=== PATIENT | female | born 1935 | race Caucasian/White ===

== ENCOUNTER 2016-10-28 11:36 | Inpatient (IN) | payer MEDICARE, BC ==
--- NOTE | ~2016-10-28 | CR72 ---
[facility] A Service of [facility] & [facility] RADIOLOGY TEXT RESULTS PATIENT: NORMA CRISOSTOMO LOCATION: [address]-16 : 34 UNIT #: [id number] AGE: [address]: Randi Gonzales MD SEX: F ORDER DR: [id number] [facility] [address] [place], [place] [address] [id number] I MR#: [id number] Acc #: [id number] NAME: NORMA CRISOSTOMO. : 1935 SEX: F STUDY DATE/TIME: 10/30/2016 04:01 UNIT: [facility] ROOM: [facility] STUDY DESCRIPTION: CR Chest Single View Portable Attending Physician: Randi Gonzales M.D. Ordering Physician: Aleksander Serrato M.D. Primary Care Physician: Nestor Hernandez M.D. MEDICAL IMAGING REPORT This report is preliminary unless electronic signature is present EXAM Portable chest, 10/30 at 04:01 INDICATION Respiratory failure status post resuscitated arrest. FINDINGS AP portable chest is compared with 10/29/2016. ET tube and right chest tube remain in place. No pneumothorax is seen. There is infiltrate or atelectasis in the bases, unchanged. Small left pleural effusion is unchanged. No visible pneumothorax. Dictated by... Mack Grover Jr., M.D. THIS IS AN ELECTRONICALLY VERIFIED REPORT Mack Grover Jr., M.D. at 10/30/2016 9:33 PM KATEY/christina TD: 10/30/2016 17:01 JOB #: [id number] MEDICAL IMAGING REPORT COPY
--- NOTE | ~2016-10-28 | CO ---
Unit #: [id number] #: [id number] Patient: NORMA CRISOSTOMO [id number] [facility] [address] [place], [place] [address] [id number] I MR#: [id number] NAME: NORMA CRISOSTOMO. ROOM: [facility] Age: 81 Sex: F Admission Date: 10/28/2016 : 1935 Attending Physician: Randi Gonzales M.D. Primary Care Physician: Nestor Hernandez M.D. Consultation Date: 10/29/2016 CONSULTATION REPORT PRIMARY CARE PHYSICIAN Nestor Hernandez M.D. REASON FOR CONSULTATION Evaluation of her resuscitated arrest. PATIENT IDENTIFICATION This is an 81-year-old, apparently right-handed white female, who was evaluated in room ICU, bed 16 at [facility]. SOURCE OF INFORMATION The medical records. PROBLEM LIST 1. History of right breast cancer, which was invasive ductal carcinoma with 6/6 lymph nodes and possible metastasis to different organs and systems maybe brain also liver and possible lungs. 2. She was discharged to rehab. 3. Dysphagia with esophageal dysmotility and history of GERD. 4. 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 5. COPD, on home oxygen. 6. Chronic pain with previous pain pump placement and removal. 7. Glaucoma. 8. Hyperlipidemia. 9. Hypertension. 10. Gout. 11. Neuropathy. 12. Mastectomy. 13. Cardiac cath. 14. . 15. Hysterectomy. 16. Cholecystectomy. 17. Neck surgery and back surgery. HISTORY OF PRESENT ILLNESS This is an 81-year-old female with significant past medical history, who was brought to the ER via EMS for evaluation of resuscitated arrest. The patient is undergoing rehab and then she was actually being visited by her daughter when suddenly collapsed around 9:00 at the rehab facility. CPR was initiated in the assisted and continued for about 12 minutes unless EMS arrived. The EMS then took over the ACLS and achieved her return of spontaneous circulation after about further 12 minutes. She received 3 doses of epinephrine. I do not think she was shocked. She was Unit #: [id number] #: [id number] Patient: NORMA CRISOSTOMO intubated prior to arrival. She has some mild sedation. She is having some posturing type movements and some myoclonic type activity, but she has not done anything purposeful. Her blood pressure was low. She did not want to be resuscitated or intubated, but now with her decision already made and the plan is to observe her and see how things go. No obvious generalized convulsive type seizures have been found. PAST MEDICAL HISTORY As above. PAST SURGICAL HISTORY As discussed above. ALLERGIES Statin and niacin. HOME MEDICATIONS As per documents available is Tylenol, allopurinol, anastrozole, Cepacol, chlorthalidone, enoxaparin, folic acid, ipratropium/albuterol, Istalol, Lamictal, melatonin, Mucinex, [place], pantoprazole, Robitussin. FAMILY HISTORY No seizure or neurologic issue. SOCIAL HISTORY The patient apparently lives in rehab. She is a former smoker. No drug or alcohol use. REVIEW OF SYSTEMS Could not be obtained because of her present condition. PHYSICAL EXAMINATION VITAL SIGNS: Temperature 98.4, pulse is 104, respirations 26, blood pressure 124/48, O2 sats 99% to 100%. NEUROLOGIC: The patient is comatose, [place] Coma Scale maybe 5 to 6 because she has this mixed kind of withdrawal versus posturing in all extremities. Obviously not following commands and not doing anything purposeful. Cranial nerve examination, her pupils sluggishly reactive. Some movements inferiorly and to the left side, but corneals present. Respond to visual threats, I did not see. Pupils sluggishly reactive. Eye movements so far are conjugate. I do not see any facial asymmetry. Hearing is questionable. Muscle mastication could not be checked. Tongue was midline. I could not visualize her oropharynx or uvula. Head turning was minimally seen. Motor examination, some mixture of posturing with withdrawals in both upper and lower extremities. Sensory examination respond to pain. I could not get any reflexes. Toes are mute because of toes are upgoing Unit #: [id number] #: [id number] Patient: NORMA CRISOSTOMO bilaterally. Gait and coordination could not be evaluated. DIAGNOSTIC STUDIES LABORATORY RESULTS: Labs reviewed especially her ABGs and please refer to the records. Her BUN is 40, creatinine is 2.2, random glucose was 185 to 335. CK was 188 to 239. Troponin was 0.56 and 0.86. Lactic acid was 8.6 and is 4.7. White count 30.2, H and H of 8.4 and 27.0, platelet count was 115. Urinalysis really did not show anything impressive. IMAGING STUDIES: CT head showed poorly defined hyperdense in the right parietal lobe near the vertex and there may be some other areas also. IMPRESSION 1. Resuscitated arrest. 2. The issue is what is the primary etiology and problem. Did she have seizure, these mets and there are multiple areas of mets with some pulmonary areas of questionable and liver areas and definitely with breast cancer lymph node. There is right pleural effusion and persistent dense consolidation within the right upper lobe. She has right-sided chest tube placed, hepatic metastasis, bilateral multiple anterior rib fractures. 3. Could this be hypoxic and anoxic encephalopathy, I will await for her to see how she does over the next 48 hours. I do want to start her on antiepileptics because if these are brain mets, then these could be seizures also. 4. Poor prognostic picture considering her age. 5. Multiple areas involved and breast cancer with metastases even to the brain then that whole picture is a poor prognostic picture even if she survives this present event and that is my point to the family considering that she never wanted to be intubated. We will see how things go. I talked to her son and I will follow up and see how things turntable man. I am concerned about poor prognostic picture as discussed and further treatment will be based on any findings and I will keep you informed. Dictated by... Diana Kline/doris TD: 10/31/2016 05:46 JOB #: [id number] CONSULTATION REPORT X Elvia Martinez MD X CONSULTATION REPORT
--- NOTE | ~2016-10-28 | CT16 ---
[facility] A Service of [facility] & [facility] RADIOLOGY TEXT RESULTS PATIENT: NORMA CRISOSTOMO LOCATION: [facility] CICCU3-16 : 34 UNIT #: [id number] AGE: [address]: Khalida Cannon MD SEX: F ORDER DR: [id number] [facility] [address] [place], [place] [address] [id number] I MR#: [id number] Acc #: [id number] NAME: NORMA CRISOSTOMO. : 1935 SEX: F STUDY DATE/TIME: 10/28/2016 12:44 UNIT: [facility] ROOM: [id number] STUDY DESCRIPTION: CT Angio Chest for PE Attending Physician: Khalida Cannon M.D. Ordering Physician: Ashley Fragoso M.D. Primary Care Physician: Nestor Hernandez M.D. MEDICAL IMAGING REPORT This report is preliminary unless electronic signature is present EXAM CT angiogram of the chest INDICATION Pneumothorax. This was diagnosed on a chest radiograph. Following a resuscitated arrest today. Patient was transferred from a prison. TECHNIQUE Axial CT images were obtained from the thoracic inlet through the dome of the diaphragm following the administration of intravenous contrast. Following this 3D reformatted images were obtained. This CT exam was performed with one or more of the following radiation dose reduction techniques: automatic exposure control, adjustment of mA and/or kV according to patient size, and iterative reconstruction. FINDINGS No acute pulmonary thromboembolus is seen. Patient is noted have aneurysmal dilatation of the ascending thoracic aorta measuring up to 4.1 cm. The descending thoracic aorta measures within normal size limits. Presence or absence of dissection really cannot be assessed on this examination, although patient does appear to have significant atherosclerotic plaque. The main pulmonary artery is dilated at 3.2 cm which can be seen in the setting of pulmonary arterial hypertension. There is no pericardial effusion. Patient has a trace right pleural effusion. Right-sided pneumothorax is noted. I would grade this at around 25%. The thyroid gland appears unremarkable. Patient has an endotracheal tube which terminates above the level of the effie. Mediastinal lymph nodes do not appear pathologically enlarged. Esophagus appears unremarkable. There are coronary artery calcifications. Background emphysematous changes are noted. The main stem bronchi appear STS. [facility] A Service of [facility] & [facility] RADIOLOGY TEXT RESULTS PATIENT: NORMA CRISOSTOMO LOCATION: [facility] CICCU3-16 : 34 UNIT #: [id number] AGE: [address]: Khalida Cannon MD SEX: F ORDER DR: narrowed bilaterally of uncertain clinical significance. Dense consolidation is seen within the right upper lobe and there is bibasilar atelectasis. Patient has subcutaneous gas seen within the right anterior chest wall. There is reflux of contrast material into the hepatic veins which can be seen in the setting of right-sided heart failure. Multiple hepatic masses are present, characteristic of metastatic disease. These were also present on a CT of the abdomen from 10/28/2016. Pancreas is atrophic. Extensive fecal burden is identified within the colon which could reflect some constipation. Gallbladder is surgically absent. Patient is status post right mastectomy. I do not see any aggressive osseous abnormalities. Patient has bilateral anterior rib fractures likely related to recent chest compressions. These include the right 2nd through 6th ribs and the left 2nd and 5th ribs. The patient does have some soft tissue stranding seen overlying the right lateral chest wall likely related to recent surgery. IMPRESSION 1. No acute pulmonary thromboembolus seen. 2. Right-sided pneumothorax. I would grade this at about 25%. 3. Dense consolidation seen within the right upper lobe. I am uncertain of the clinical significance. Pneumonia would be a consideration as would pulmonary contusion. 4. Aneurysmal dilatation of the ascending thoracic aorta measuring up to 4.1 cm. 5. Endotracheal tube terminates above the level of the effie. 6. Since prior CT, patient has undergone a right mastectomy. 7. Hepatic metastases. 8. Extensive fecal burden seen throughout the colon which may reflect some constipation. 9. Bilateral multiple anterior rib fractures. Dictated by... Leidy Engel M.D. THIS IS AN ELECTRONICALLY VERIFIED REPORT Leidy Engel M.D. at 10/28/2016 5:25 PM AFF/aa TD: 10/28/2016 16:13 JOB #: [id number] MEDICAL IMAGING REPORT COPY
--- NOTE | ~2016-10-28 | CR72 ---
[facility] A Service of [facility] & [facility] RADIOLOGY TEXT RESULTS PATIENT: NORMA CRISOSTOMO LOCATION: [facility] [address]82-51 : 34 UNIT #: [id number] AGE: [address]: Khalida Cannon MD SEX: F ORDER DR: [id number] [facility] [address] [place], [place] [address] [id number] MR#: [id number] Acc #: [id number] NAME: NORMA CRISOSTOMO. : 1935 SEX: F STUDY DATE/TIME: 10/28/2016 12:00 UNIT: [facility] ROOM: STUDY DESCRIPTION: CR Chest Single View Portable Attending Physician: Ashley Fragoso M.D. Ordering Physician: Ashley Fragoso M.D. Primary Care Physician: Nestor Hernandez M.D. MEDICAL IMAGING REPORT This report is preliminary unless electronic signature is present EXAM Portable chest 10/28/2016 COMPARISON STUDIES Comparison examination same date. HISTORY Reevaluation of pneumothorax. An AP view is obtained. FINDINGS The patient remains intubated with ET tube above the effie. Right pneumothorax is again identified. It has increased slightly in size. Chronic pulmonary parenchymal scarring seen in both lungs with postop changes of right thoracotomy. ET tube is in good position. CONCLUSION Slight increase in the predominantly basilar appearing right pneumothorax. Dictated by... Srikanth Damian M.D. THIS IS AN ELECTRONICALLY VERIFIED REPORT Srikanth Daiman M.D. at 10/28/2016 4:45 PM ADAM/edie TD: 10/28/2016 15:14 JOB #: [id number] MEDICAL IMAGING REPORT COPY
--- NOTE | ~2016-10-28 | EKG ---
PATIENT: NORMA CRISOSTOMO UNIT #: [id number] Ventricular Rate: 74 BPM Atrial Rate: 74 BPM QRS Duration: 86 ms Q-T Interval: 372 ms QTC Calculation(Bezet): 412 ms Calculated R Corning: 75 degrees Calculated T Corning: 50 degrees Diagnosis Line: Normal sinus rhythm Diagnosis Line: Nonspecific ST elevation Diagnosis Line: Borderline ECG Diagnosis Line: When compared with ECG of 29-SEP-2016 21:55, Diagnosis Line: Minimal criteria for Anterior infarct are no Diagnosis Line: longer Present Diagnosis Line: Criteria for Inferior infarct are no longer Diagnosis Line: Present Diagnosis Line: Confirmed by KATIA ADAMS MD ([id number]) on 10/29/2016 Diagnosis Line: 5:58:19 PM INTERPRETING MD: ANGIE SEGURA
--- NOTE | ~2016-10-28 | CT71 ---
[facility] A Service of [facility] RADIOLOGY TEXT RESULTS PATIENT: NORMA CRISOSTOMO LOCATION: [facility] CICCU3-16 : 34 UNIT #: [id number] AGE: [address]: Randi Gonzales MD SEX: F ORDER DR: [id number] [facility] [address] [place], [place] [address] [id number] I MR#: [id number] Acc #: [id number] NAME: NORMA CRISOSTOMO. : 1935 SEX: F STUDY DATE/TIME: 10/28/2016 12:36 UNIT: [facility] ROOM: [id number] STUDY DESCRIPTION: CT Head Wo Contrast Attending Physician: Khalida Cannon M.D. Ordering Physician: Ashley Fragoso M.D. Primary Care Physician: Nestor Hernandez M.D. MEDICAL IMAGING REPORT This report is preliminary unless electronic signature is present EXAM Noncontrast CT head. DATE 10/28/2016 at 1236 HISTORY Resuscitated from arrest at custodial today. Hypertension. Previous stroke. COMPARISON Noncontrast CT head, 12/24/2009. TECHNIQUE This CT exam was performed with one or more of the following radiation dose reduction techniques: automatic exposure control, adjustment of mA and/or kV according to patient size, and iterative reconstruction. FINDINGS Hypodensities demonstrated within the right parietal lobe near the vertex, measuring 2.2 x 1.2 cm. It is a new finding since the 12/24/2009 examination and may represent an area of evolving infarct. Some of this hypodensity does extend to the cortical margin. No significant mass effect or midline shift. No acute intracranial hemorrhage. Questionable microvascular disease changes within the right posterior parietal lobe medially. [id number]-md-fpvnbctn parenchymal atrophy, particularly in the bifrontal regions. Ventricular configuration is within normal limits. Dense ethmoid sinus mucosal thickening. Mastoid air cells are clear. Calvaria is within normal limits. IMPRESSION 1. Poorly defined hypodensity in the right parietal lobe near the [facility] RADIOLOGY TEXT RESULTS PATIENT: NORMA CRISOSTOMO [facility] CICCU3-16 : 34 UNIT #: [id number] AGE: [address]: Randi Gonzales MD SEX: F ORDER DR: measuring at least 2.2 x 1.2 cm. It is nonspecific and could represent an area of evolving infarct. Questionable microvascular disease change also within the posteromedial right parietal lobe. If the patient has acute stroke-like symptoms, consider correlation to MRI brain stroke protocol (if the patient is an MRI candidate). These findings are new in comparison to the 12/24/[address] head. 2. Ethmoid sinus disease. 3. Mild atrophy. Dictated by... Gisele Salmeron M.D. THIS IS AN ELECTRONICALLY VERIFIED REPORT Gisele Salmeron M.D. at 10/30/2016 7:02 PM MIRZA/evita TD: 10/28/2016 16:21 JOB #: [id number] MEDICAL IMAGING REPORT COPY
--- NOTE | ~2016-10-28 | HP ---
Unit #: [id number] #: [id number] Patient: NORMA CRISOSTOMO [id number] [facility]. [place], [place] [address] [id number] MR#: [id number] NAME: NORMA CRISOSTOMO ROOM: Age: 81 Sex: F Admission Date: 10/28/2016 : 1935 Attending Physician: Ashley Fragoso M.D. Primary Care Physician: Nestor Hernandez M.D. HISTORY AND PHYSICAL CHIEF COMPLAINT Resuscitated arrest. HISTORY OF PRESENT ILLNESS The patient is an 81-year-old female with past medical history of multiple medical problems including breast cancer, COPD, chronic respiratory failure, hypertension, hyperlipidemia, Freedman's palsy, neuropathy, chronic pain who was brought to the emergency department via EMS for evaluation of the above. History is obtained from chart review and discussion with ER staff as well as discussion with multiple family members. Of note, the patient was hospitalized at [facility] September 29 through October 08, 2016, for right breast cancer. She underwent mastectomy during that admission. She was also found to have pneumonia. She was discharged to rehab on Levaquin. The patient was apparently eating breakfast with her daughter this morning when she suddenly collapsed. This was around 9 o'clock at the rehab facility. CPR was initiated at the care home and continued for about 12 minutes until EMS arrived. EMS then took over with ACLS and achieved a return of spontaneous circulation after about 12 minutes. The patient received three doses of epinephrine prior to arrival. She was intubated prior to arrival. Upon arrival in the emergency department, the patient's pulse is noted to be 80, blood pressure 82/34. She received 2 L of normal saline. She was started on a Levophed drip. CT of the head was done and showed a new density in the right parietal lobe concerning for possible evolving infarct. CT of the chest PE protocol showed no PE; however, she does have dense consolidation involving the right upper lobe. Liver metastasis is also noted. She was also found to have a right-sided pneumothorax. A femoral line was placed by the emergency room physician. Dr. Serrato has already placed a chest tube. She is being admitted to [facility] for evaluation and further treatment. Also of note, the patient received Zosyn for healthcare-associated pneumonia. PAST MEDICAL HISTORY 1. Admission to [facility] September 29 through October 08, 2016, for right breast cancer. 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 She underwent mastectomy during that admission. 2. She was also found to have pneumonia and discharged to rehab on Levaquin. 3. Dysphagia, status post multiple esophageal dilatations and history of esophageal dysmotility and GERD. Unit #: [id number] #: [id number] Patient: NORMA CRISOSTOMO 4. 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 5. COPD on home oxygen. 6. Chronic pain with previous pain pump placement and removal. 7. Glaucoma. 8. Hyperlipidemia. 9. Hypertension. 10. Gout. 11. Neuropathy. PAST SURGICAL HISTORY 1. Mastectomy. 2. Cardiac catheterization. 3. . 4. Hysterectomy. 5. Cholecystectomy. 6. Pain pump placement and removal. 7. Neck surgery. 8. Back surgery. SOCIAL HISTORY The patient is currently at rehab. She is a former smoker. There is no alcohol use. CODE STATUS Her code status is a full code. FAMILY HISTORY Negative for breast cancer. ALLERGIES Statins and Niacin. HOME MEDICATIONS Not listed. Home medications per the ER triage sheet include: 1. Tylenol. 2. Allopurinol. 3. Anastrozole. 4. Cepacol. 5. Chlorthalidone. 6. Enoxaparin. 7. Folic acid. 8. Ipratropium/albuterol. 9. Istalol. 10. Lamictal. 11. Melatonin. 12. Mucinex. 13. [place]. 14. Pantoprazole. 15. Robitussin. Home medications will need to be reviewed and verified. REVIEW OF SYSTEMS A complete review of systems was unobtainable from the patient secondary to altered mental status but negative except as indicated in the HPI, per the patient's family. Apparently, the patient had a persistent cough but no fever. She had no complaints this morning prior to collapse. Unit #: [id number] #: [id number] Patient: NORMA CRISOSTOMO DIAGNOSTIC STUDIES LABORATORY: Troponin is less than 0.05. Urinalysis essentially normal. Complete blood count notable for white blood cell count of 16.3, hemoglobin and hematocrit 8.3 and 27.2 respectively, platelets 97,000. Arterial blood gas shows pH of 7.174, pCO2 of 56.2, pO2 of 432 on assist control with a FIO2 of 100%. INR is 1.2. Lactic acid 8.6. Comprehensive metabolic panel notable for potassium of 5.3, bicarbonate is 20, glucose 335, BUN and creatinine 39 and 1.7 respectively. Calcium is 8.2 but corrects when albumin of 2.4 is accounted for. Total protein is 4.2. AST and ALT are 106 and 44 respectively. Magnesium is 1.9. IMAGING: Chest x-ray shows rib fractures. CT of the chest PE protocol shows no PE. There is dense consolidation involving the right upper lobe. Liver metastasis is noted. A right-sided pneumothorax, approximately 25%. CT of the head shows hypodensity involving the right parietal lobe concerning for evolving infarct. CARDIOVASCULAR: EKG shows accelerated junctional rhythm and a rate of 74 beats per minute. PHYSICAL EXAMINATION VITAL SIGNS: Temperature is not recorded. Pulse 80, respirations 20, blood pressure 82/31. GENERAL: The patient is a female who is currently intubated. HEENT: The head is atraumatic. Mucous membranes are dry. NECK: Supple. Trachea is midline. CARDIOVASCULAR: Regular rate and rhythm. LUNGS: Demonstrate scattered expiratory wheezes. She does have a right-sided chest tube in place. ABDOMEN: Soft with bowel sounds present in all four quadrants. EXTREMITIES: There is no pedal edema. NEUROLOGIC: The patient reportedly had a gag reflex. Pupils are equal and reactive. PSYCHIATRIC: Unable to assess. SKIN: Skin of examined area is warm and dry. ASSESSMENT The patient is an 81-year-old female with: 1. Resuscitated arrest with return of spontaneous circulation after about 24 minutes of cardiopulmonary resuscitation. The patient received three doses of epinephrine and never had a shockable rhythm. 2. Septic shock: The patient received 2 L of normal saline. She is currently on Levophed drip. 3. Healthcare-associated pneumonia. 4. Right-sided pneumothorax, status post chest tube placement. 5. Multiple rib fractures. 6. Parietal lesion concerning for evolving stroke. 7. Anemia. 8. Thrombocytopenia. 9. Hyperglycemia: I do not see that the patient has a history of diabetes. 10. Acute kidney injury. 11. Hyperkalemia. 12. Transaminitis. 13. History of breast cancer with metastatic involvement of lymph nodes Unit #: [id number] #: [id number] Patient: NORMA CRISOSTOMO and liver. 14. Chronic obstructive pulmonary disease. 15. Chronic respiratory failure. 16. Hyperlipidemia. 17. Freedman's palsy. 18. Neuropathy. 19. Chronic pain. 20. Former smoker. PLAN 1. Admit to intensive care unit. 2. NPO. 3. Normal saline at 125 mL an hour. 4. Consult Dr. Serrato regarding pneumothorax, intensive care unit admission, resuscitated arrest (he has already seen the patient and we have discussed the patient. She is not a candidate for hypothermia.) 5. Blood cultures x2. 6. Sputum culture and sensitivity. 7. Procalcitonin level. 8. Streptococcal and legionella urine antigen. 9. Vancomycin IV, tobramycin IV, Zosyn IV pending further workup. 10. DuoNeb q.4 hours. 11. Solu-Medrol 80 mg IV q.12 hours. 12. Hemoglobin A1c. 13. Low-dose sliding scale insulin with Accu-Cheks. 14. Serial cardiac enzymes. 15. Sepsis protocol with repeat lactic acid. 16. Repeat BMP and hemoglobin and hematocrit later this afternoon to followup anemia and hyperkalemia. 17. Consult Dr. Martinez regarding right parietal lobe lesion. 18. MRI of the brain without contrast for further evaluation of parietal lobe lesion. 19. Protonix for gastrointestinal prophylaxis. 20. Sequential compression devices for deep venous thrombosis prophylaxis. 21. Repeat labs in the morning. 22. Regarding code status, the patient is a full code. Forty five minutes critical care time spent in the care of this patient (2 o'clock to 2:45 p.m.). I discussed this patient with multiple family members including the patient's daughter. All their questions were answered. Dictated by Diana Mcfarland TD: 10/28/2016 14:58 JOB #: [id number] Unit #: [id number] #: [id number] Patient: NORMA CRISOSTOMO HISTORY AND PHYSICAL X Khalida Cannon MD X HISTORY AND PHYSICAL
--- NOTE | ~2016-10-28 | CR71 ---
[facility] A Service of [facility] RADIOLOGY TEXT RESULTS PATIENT: NORMA CRISOSTOMO LOCATION: [place] [address]16 : 34 UNIT #: [id number] AGE: [address]: Randi Gonzales MD SEX: F ORDER DR: [id number] [facility] [address] [place], [place] [address] [id number] I MR#: [id number] Acc #: [id number] NAME: NORMA CRISOSTOMO. : 1935 SEX: F STUDY DATE/TIME: 10/29/2016 05:04 UNIT: [facility] ROOM: [facility] STUDY DESCRIPTION: CR Chest Single View Attending Physician: Randi Gonzales M.D. Ordering Physician: Khalida Cannon M.D. Primary Care Physician: Nestor Hernandez M.D. MEDICAL IMAGING REPORT This report is preliminary unless electronic signature is present EXAM Chest x-ray, 10/29 at 05:04 INDICATION Respiratory failure. Chest tube. Pneumonia. FINDINGS AP portable chest is compared with 10/28/2016. ET tube has been pulled back somewhat and is now about 6.0 cm above the effie. Right side chest tube in place. Right pleural fluid is stable. Mild infiltrate or atelectasis in both bases is also stable. No pneumothorax. Dictated by... Mack Grover Jr., M.D. THIS IS AN ELECTRONICALLY VERIFIED REPORT Mack Grover Jr., M.D. at 10/29/2016 11:01 PM KATEY/christina TD: 10/29/2016 18:05 JOB #: [id number] MEDICAL IMAGING REPORT COPY
--- NOTE | ~2016-10-28 | OR ---
Unit #: [id number] #: [id number] Patient: NORMA CRISOSTOMO [id number] [place], [place] [address] [id number] Giana MR#: [id number] NAME: NORMA CRISOSTOMO ROOM: [facility] Date of Procedure: 10/28/2016 Admission Date: 10/28/2016 Surgeon: Juanjo Serrato M.D. : 1935 Attending Physician: Randi Gonzales M.D. Primary Care Physician: Nestor Hernandez M.D. PROCEDURE OPERATIVE NOTE PROCEDURE PERFORMED Thoracotomy/chest tube placement. INDICATION FOR PROCEDURE Iatrogenic right-sided pneumothorax due to CPR. PREOPERATIVE DIAGNOSIS Status post cardiac arrest. Informed consent was waived. DESCRIPTION OF PROCEDURE Patient's right chest was cleaned and prepped with chlorhexidine and povidone. Then, a small cut about 3 cm was obtained with a scalpel at the level of the fifth intercostal space. Then, with a Cielo clamp multiple dissections were obtained gently through her soft tissues to the level of the ribs. Then, I was able to puncture the intercostal space with my finger, and a gush of air was obtained. Then, a 20-Korean size chest tube was inserted between the ribs and sutured appropriately. Then, Vaseline, gauze, and a dressing were applied. The chest tube was connected to suction chambers and air bubbles were noted. A stat chest x-ray confirmed placement with no immediate complication. This procedure was done in a sterile fashion. Dictated by... Juanjo Serrato M.D. EA/castro TD: 11/01/2016 21:41 JOB #: [id number] PROCEDURE OPERATIVE NOTE X JUANJO NIETO MD PROCEDURE OPERATIVE NOTE
--- NOTE | ~2016-10-28 | DS ---
Unit #: [id number] #: [id number] Patient: NORMA CRISOSTOMO [id number] [facility]. [place], [place] [address] [id number] I MR#: [id number] NAME: NORMA CRISOSTOMO ROOM: [facility] Age: 81 Sex: F Admission Date: 10/28/2016 : 1935 Discharge Date: 10/30/2016 Attending Physician: Randi Gonzales M.D. Primary Care Physician: Nestor Hernandez M.D. DISCHARGE SUMMARY SUMMARY HOSPITAL COURSE 81-year-old female was admitted to [facility] with cardiac arrest. Patient was seen by cardiology and pulmonary in consultation. She was treated for septic shock, hypotension with vasopressors, healthcare-associated pneumonia. Had a right sided pneumothorax, status post chest tube placement with multiple rib fractures. There was also concern for evolving stroke. The patient also had anemia and thrombocytopenia. The patient's condition did not improve. Neurology also saw patient in consultation. Therefore, after multiple discussions with patient's family member, it was decided to terminally extubated patient. The patient peacefully on 10/30/2016. Dictated by... Diana Del Toro/darrell TD: 10/31/2016 13:11 JOB #: [id number] DISCHARGE SUMMARY X Randi Gonzales MD X DISCHARGE SUMMARY
--- NOTE | ~2016-10-28 | CR7 ---
[facility] A Service of [facility] & [facility] RADIOLOGY TEXT RESULTS PATIENT: NORMA CRISOSTOMO LOCATION: [address] : 34 UNIT #: [id number] AGE: [address]: Randi Gonzales MD SEX: F ORDER DR: [id number] [facility] [address] [place], [place] [address] [id number] I MR#: [id number] Acc #: [id number] NAME: NORMA CRISOSTOMO. : 1935 SEX: F STUDY DATE/TIME: 10/29/2016 05:04 UNIT: [facility] ROOM: [facility] STUDY DESCRIPTION: CR Abdomen Single AP View Attending Physician: Randi Gonzales M.D. Ordering Physician: Khalida Cannon M.D. Primary Care Physician: Nestor Hernandez M.D. MEDICAL IMAGING REPORT This report is preliminary unless electronic signature is present EXAM KUB, 10/29 at 05:04 INDICATION NG tube placement FINDINGS Supine view of the abdomen was obtained. Tip of an NG tube is noted in the body of the stomach. Cholecystectomy clips are present. Visualized bowel gas pattern is normal. Small caliber tubing overlies the left upper quadrant. Correlate clinically for etiology. Dictated by... Mack Grover Jr., M.D. THIS IS AN ELECTRONICALLY VERIFIED REPORT Mack Grover Jr., M.D. at 10/29/2016 11:01 PM KATEY/christina TD: 10/29/2016 18:04 JOB #: [id number] MEDICAL IMAGING REPORT COPY
--- NOTE | ~2016-10-28 | A ---
[facility] Nutrition Therapy DATE: 10/29/16 Patient: NORMA CRISOSTOMO Physician: ALFONSO Address: [address] Room/Bed: [address], Zip: [place] [address] Admit Date: 10/28/16 Date of : 34 Height: 5 Weight: 174 79 NUTRITIONAL ASSESSMENT: REASON: Seen due to NPO status in ICU, intubated Admitting Dx: 81 y/o female s/p resuscitated arrest from senior living PMH: GERD, COPD, HTN, HLD, breast cancer s/p recent mastectomy, dysphagia, esophageal dysmotility s/p multiple dilations, chronic respiratory failure, former smoker, Freedman's Palsy, neuropathy, chronic pain Anthropometrics: Ht: 60", Wt: 79 kg, BMI: 34 Labs: Glucose 185, POC 178, BUN 40, Creat 2.2, AST 89, ALT 42, A1C 6.2, GFR 22.7, lytes WNL Meds: Solu-Medrol, Levophed, Fentanyl, PPI, Novolog (low SSI), NSIV @ 125 ml/hr I/O & Bowel function: LBM unknown, NGT to LWS Skin Integrity: Chest tube site, closed surgical incision R breast (mastectomy site), scars noted, BLE edema 2+ Estimated Nutrition Needs: 1357-7453 kcals per day (15-20 kcals/kg) 68-91 g protein per day (1.5-2.0 g/kg IBW) Fluids consistent with kcal needs or per MD Assessment: Chart reviewed, events noted. See admitting dx and PMH as stated above. Patient had recent admission to this facility from 09/29-10/08/16 for breast cancer and had mastectomy, also found to have PNA during that admission. CT of chest this admission shows liver mets and right pnemothorax, CT of head showed concern of right evolving infarct. Patient is intubated in the ICU, NPO. Note elevated A1C and hyperglycemia but patient has no hx of diabetes. She is inappropriate for RD interview at this time, please see EN recs below, will follow hospital course. Dx: Inadequate protein energy intake r/t nutrition not yet initiated AEB NPO in ICU, intubated, need for EN. Intervention: EN recs as stated below Monitoring, Evaluation and Goals: 1. Nutrition support consistent with estimated needs. [facility] Nutrition Therapy DATE: 10/29/16 Patient: NORMA Ruaon ANDRESSA Physician: ALFONSO Address: [address] Room/Bed: [address] [place] [address], Zip: [place] [address] Admit Date: 10/28/16 Date of : 34 Height: 5 Weight: 174 79 2. Improvement in lab values (AST, ALT, GFR, BUN, Creatinine, glucose). Monitor: Per protocol, criteria to determine if above goals met Recommendations: 1. If the patient is to remain intubated > 48 hours start enteral feedings once medically appropriate with Glucerna 1.5 @ 20 ml and increase by 10 ml q 4 hours until goal rate of 45 ml/hr is reached, to provide 1620 kcals, 89 g protein and 821 ml water. Once at goal rate add free water flushes per MD, RD suggests 200 ml QID and hold liquid IVF. 2. If extubated advance to oral diet per VARNISH INSPECTOR only, RD suggests regular diet. Patient may need 60g carb restriction if hyperglycemia continues, although she has no history of diabetes. 3. Optimize insulin regimen, change SSI to medium correction scale if needed. RD will follow hospital course Moderate-severe nutrition risk Respectfully, Sulma Fonseca, VERONICA, LD [employer] [facility] cc: client file
--- NOTE | ~2016-10-28 | CR72 ---
[facility] A Service of [facility] RADIOLOGY TEXT RESULTS PATIENT: NORMA CRISOSTOMO LOCATION: [facility] : 34 UNIT #: [id number] AGE: [address]: Ashley Fragoso MD SEX: F ORDER DR: [id number] [facility] [address] [place], [place] [address] [id number] E MR#: [id number] Acc #: [id number] NAME: NORMA CRISOSTOMO. : 1935 SEX: F STUDY DATE/TIME: 10/28/2016 10:41 UNIT: [facility] ROOM: STUDY DESCRIPTION: CR Chest Single View Portable Attending Physician: Ashley Fragoso M.D. Ordering Physician: Ashley Fragoso M.D. Primary Care Physician: Nestor Hernandez M.D. MEDICAL IMAGING REPORT This report is preliminary unless electronic signature is present EXAM Portable chest. HISTORY Resuscitated cardiac arrest. COMPARISON 10/07/2016. The patient became unresponsive earlier today. TECHNIQUE A single view chest was obtained. FINDINGS The tip of the endotracheal tube is in good position above the effie. The heart and mediastinum are stable. Chronic interstitial infiltrates are seen in the lower lung joseph. No new infiltrates are noted. There is a pneumothorax on the right. This is new since previous examination. There is no evidence of tension pneumothorax. Pneumothorax is about 10% to 15%. IMPRESSION 1. Small right pneumothorax, new since the previous examination. No shift of the mediastinum as a result. 2. Endotracheal tube tip in good position above the effie. 3. No new focal infiltrates are seen. Dictated by... Mack Jurado M.D. THIS IS AN ELECTRONICALLY VERIFIED REPORT Mack Jurado M.D. at 10/28/2016 3:27 PM RLF/gz [facility] A Service of [facility] RADIOLOGY TEXT RESULTS PATIENT: NORMA CRISOSTOMO LOCATION: [facility] : 34 UNIT #: [id number] AGE: [address]: Ashley Fragoso MD SEX: F ORDER DR: TD: 10/28/2016 14:23 JOB #: [id number] MEDICAL IMAGING REPORT COPY
--- NOTE | ~2016-10-28 | CO ---
Unit #: [id number] #: [id number] Patient: NORMA CRISOSTOMO [id number] [address] [address] [id number] Giana MR#: [id number] NAME: NORMA CRISOSTOMO ROOM: [facility] Age: 81 Sex: F Admission Date: 10/28/2016 : 1935 Attending Physician: Randi Gonzales M.D. Primary Care Physician: Nestor Hernandez M.D. Consultation Date: 10/28/2016 CONSULTATION REPORT REASON FOR CONSULT ICU management. CHIEF COMPLAINT Resuscitated arrest. HISTORY OF PRESENT ILLNESS This is an 81-year-old female who was diagnosed recently with breast cancer, status post mastectomy, who presented to the emergency room via EMS after she had resuscitated arrest at the custodial. Per ER staff and multiple family members, the patient was not feeling well for the last couple of days and she was treated for pneumonia with Levaquin. While she was eating breakfast this morning, the patient suddenly collapsed. Staff at the custodial immediately started CPR and called EMS. By the time they arrived, it was 12 minutes later and patient achieved return of spontaneous circulation after about 10-12 minutes. Also, patient received multiple doses of epinephrine but she did not need any shock. Upon presentation to the ER, the patient was noted to have a right-sided pneumothorax. I was called emergently to bedside to place a chest tube. Review of systems unable to obtain. PAST MEDICAL HISTORY 1. Invasive ductal carcinoma of the right breast. 2. Dysphagia. 3. GERD. 4. Esophageal dysmotility. 5. Freedman palsy. 6. COPD on home oxygen. 7. Chronic pain. 8. Glaucoma. 9. Hyperlipidemia. 10. Hypertension. 11. Gout. 12. Neuropathy. PAST SURGICAL HISTORY 1. Mastectomy. 2. Cardiac catheterization. 3. . 4. Hysterectomy. 5. Cholecystectomy. 6. Pain pump placement and removal. 7. Neck surgery. Unit #: [id number] #: [id number] Patient: NORMA CRISOSTOMO 8. Back surgery. HOME MEDICATIONS 1. Tylenol. 2. Allopurinol. 3. Anastrazole. 4. Enoxaparin. 5. Lamictal. 6. Mucinex. 7. Pantoprazole. ALLERGIES 1. Statins. 2. Niacin. SOCIAL HISTORY Patient currently at rehab. She is a former smoker. No history of alcohol or drug abuse. REVIEW OF SYSTEMS Unable to obtain from patient due to her condition. PHYSICAL EXAMINATION GENERAL: The patient is unresponsive. She is having some myoclonus movement. HEENT: Atraumatic, normocephalic. PERRLA. EOMI. NECK: Supple. No JVD. No lymphadenopathy. LUNGS: Bilateral rhonchi. HEART: S1, S2. No murmur, gallop or rubs. ABDOMEN: Soft, nontender. Bowel sounds are positive. No hepatosplenomegaly. EXTREMITIES: Slight edema in the right lower extremity. NEUROLOGIC: Unresponsive even to painful stimuli. She still has gag and cough reflexes. She is breathing over the vent. SKIN: No rashes. DIAGNOSTIC STUDIES LABORATORY: White blood cell count 16. pH 7.17. INR 1.2. Lactic acid 8.6. Creatinine 1.7. IMAGING: CT chest and chest x-ray are consistent with right-sided pneumothorax. ASSESSMENT 1. Status post pulseless electrical cardiac arrest. 2. Jhcvn-pg-biitxkd hypoxic respiratory failure. 3. Right-sided pneumothorax, likely iatrogenic secondary to CPR. 4. Hzanv-tk-klgnnsb kidney disease. 5. Breast cancer. 6. Healthcare-associated pneumonia. 7. Multiple rib fractures. 8. Thrombocytopenia. 9. Chronic anemia. 10. Diabetes. 11. Liver shock. 12. Chronic obstructive pulmonary disease exacerbation. PLAN Unit #: [id number] #: [id number] Patient: NORMA CRISOSTOMO 1. Patient is very critical will continue vent support. 2. The patient is not a candidate for hypothermia protocol due to her terminal illness from breast cancer. 3. Broad-spectrum antibiotics. 4. Pressors to support blood pressure. 5. IV hydration. 6. Status post chest tube placement by me in the ER. 7. Protonix drip. 8. DVT prophylaxis. Critical time spent on this patient was 45 minutes. Dictated by... Diana Bean TD: 11/01/2016 21:42 JOB #: [id number] CONSULTATION REPORT X JUANJO NIETO MD CONSULTATION REPORT
--- NOTE | ~2016-10-28 | CR72 ---
[facility] A Service of [facility] & [facility] / [facility] RADIOLOGY TEXT RESULTS PATIENT: NORMA CRISOSTOMO LOCATION: [address]-16 : 34 UNIT #: [id number] AGE: [address]: Randi Gonzales MD SEX: F ORDER DR: [id number] [facility] [address] [place], [place] [address] [id number] MR#: [id number] #: [id number] NAME: NORMA CRISOSTOMO. : 1935 SEX: F STUDY DATE/TIME: 10/28/2016 14:12 UNIT: [facility] ROOM: [facility] STUDY DESCRIPTION: CR Chest Single View Portable Attending Physician: Khalida Cannon M.D. Ordering Physician: Ashley Fragoso M.D. Primary Care Physician: Nestor Hernandez M.D. MEDICAL IMAGING REPORT This report is preliminary unless electronic signature is present EXAM Portable chest radiograph. DATE OF EXAM 10/28/2016 INDICATION Chest tube placement. FINDINGS Endotracheal tube is present which terminates above the level of the effie. Right-sided chest tube has been placed. The previously identified right pneumothorax is significantly smaller. There is a trace right pleural effusion and persistent dense consolidation noted within the right upper lobe. There is some increasing of consolidation noted at the left lung base. No pneumothorax is seen on the left. Endotracheal tube terminates above the level of the effie. Dictated by... Leidy Engel M.D. THIS IS AN ELECTRONICALLY VERIFIED REPORT Leidy Engel M.D. at 10/29/2016 12:51 PM AFF/jmamie TD: 10/28/2016 19:49 JOB #: [id number] MEDICAL IMAGING REPORT COPY
[~2016-10-28 11:36] MED LIST: ANTIVERT PO; ASPIRIN EC81 M1 PO; ASPIRIN PO; CHLORTHALIDONE25 MG PO; COMBIVENT INH14.7 G1 IH; COMBIVENT INH14.7 GM INH; COMBIVENT U/D3 M2 INH; COMBIVENT U/D3 ML INH; DIOVAN160 MG PO; HYDROCODON-ACE1 EAC7 PO; HYZAAR 50-12.51 TAB PO; ISTALOL OP; LAMICTAL PO; LAMICTAL100 MG PO; METOPROLOL TAR25 MG PO; NEXIUM PO; PRILOSEC PO; PRILOSEC20 MG PO; SYMBICORT INH; TIMOPTIC2.5 ML OP; ZYLOPRIM100 MG PO; ZYRTEC PO
[2016-10-28 11:40] LABS: URINE SOURCE CATH
[2016-10-28 11:45] LABS: POC - CKMB 4.9 ng/mL (0.0-7.9); POC - TROPONIN <0.05 ng/mL (<=0.05)
[2016-10-28 11:46] LABS: URINE APPEARANCE CLOUDY; URINE BILIRUBIN NEG (NEG); URINE BLOOD NEG (NEG); URINE COLOR YELLOW; URINE GLUCOSE NEG (NEG); URINE KETONE NEG (NEG); URINE LEUKOCYTE ESTERASE NEG (NEG); URINE NITRATE NEG (NEG); URINE PROTEIN NEG (NEG); URINE SPECIFIC GRAVITY 1.021 (1.003-1.035); URINE UROBILINOGEN 0.2 MG/DL (NEG)
[2016-10-28 11:50] LABS: BASOPHIL% 0.1 % (0-2.5); EOSINOPHIL# 0.1 X10e3 (0-0.7); EOSINOPHIL% 0.3 % (0.0-7.0); HEMATOCRIT 27.2 % (35.0-45.0); HEMOGLOBIN 8.3 gm/dL (12.0-16.0); LYMPHOCYTE# 0.9 X10e3 (1.0-3.5); LYMPHOCYTE% 5.7 % (17.0-45.0); MEAN CELL VOLUME 87.6 FL (83-96); MEAN CORPUSCULAR HEMOGLOBIN 26.6 PG (28-34); MEAN CORPUSCULAR HGB CONC 30.4 g/dL (30-36); MEAN PLATELET VOLUME 7.9 FL (6.5-11.5); MONOCYTE# 0.3 X10e3 (0-1.0); MONOCYTE% 2.2 % (3.0-12.0); NEUTROPHIL# 14.9 X10e3 (1.5-7.1); NEUTROPHIL% 91.7 % (40-75); PLATELET COUNT 97 X10e3 (140-420); RED BLOOD COUNT 3.11 X10e (3.90-5.30); RED CELL DISTRIBUTION WIDTH 17.2 % (11.0-15.5); WHITE BLOOD COUNT 16.3 X10e3 (4.0-10.5)
[2016-10-28 11:51] LABS: DIFF IND YES
[2016-10-28 11:53] LABS: CULTURE INDICATED? NO
[2016-10-28 12:06] LABS: PLATELET ESTIMATE DECREASED (NORMAL)
[2016-10-28 12:07] LABS: ANISOCYTOSIS SL
[2016-10-28 12:11] LABS: ARTERIAL BLD GAS O2 SATURATION 98.9 % (90.0-100.0); ARTERIAL BLOOD GAS HCO3 20.6 mmol/L
[2016-10-28 12:12] LABS: ARTERIAL BLOOD GAS ART SITE RIGHT BRACHIAL; ARTERIAL BLOOD GAS DELIVERY VENT; ARTERIAL BLOOD GAS PCO2 56.2 mmHg (35.0-45.0); ARTERIAL BLOOD GAS VENT MODE AC; ARTERIAL BLOOD GAS pH 7.174 (7.350-7.450); ARTERIAL DRAW? YES
[2016-10-28 12:15] LABS: INR 1.2; PROTHROMBIN TIME (PATIENT) 13.1 SECONDS (9.6-11.5)
[2016-10-28 12:43] LABS: ALBUMIN SERUM 2.4 g/dL (3.5-5.0); BILIRUBIN, DIRECT 0.1 mg/dL (0.0-0.2); BILIRUBIN,INDIRECT 0.4 mg/dL (0.0-0.9); BILIRUBIN,TOTAL 0.5 mg/dL (0.2-2.0); BUN/CREATININE RATIO 22.94; CALCIUM SERUM 8.2 mg/dL (8.4-10.2); CREATININE SERUM 1.7 mg/dL (0.6-1.4); GLOM FILT RATE Estimated 30.6 mL/min (>60); POTASSIUM 5.3 mmol/L (3.5-5.1); PROTEIN TOTAL SERUM 4.2 g/dL (6.0-8.3)
[2016-10-28 13:45] LABS: POC - CREATININE 0.92 mg/dL (0.44-1.03); POC - GFR >60.0 mL/min (>60)
[2016-10-28 14:54] LABS: POC - CKMB 12.3 ng/mL (0.0-7.9); POC - TROPONIN 0.12 ng/mL (<=0.05)
[2016-10-28 16:30] LABS: HEMATOCRIT 29.5 % (35.0-45.0); HEMOGLOBIN 9.3 gm/dL (12.0-16.0)
[2016-10-28 16:57] LABS: BUN/CREATININE RATIO 21.05; CALCIUM SERUM 8.2 mg/dL (8.4-10.2); CREATININE SERUM 1.9 mg/dL (0.6-1.4); GLOM FILT RATE Estimated 26.9 mL/min (>60); POTASSIUM 4.3 mmol/L (3.5-5.1)
[2016-10-28 18:21] LABS: ARTERIAL BLD GAS O2 SATURATION 97.2 % (90.0-100.0); ARTERIAL BLOOD GAS CARBOXY HB 0.2 %sat (0.0-9.0); ARTERIAL BLOOD GAS HCO3 22.4 mmol/L; ARTERIAL BLOOD GAS MET HB 0.7 %sat (0.0-2.0); ARTERIAL BLOOD GAS PCO2 47.3 mmHg (35.0-45.0); ARTERIAL BLOOD GAS pH 7.284 (7.350-7.450)
[2016-10-28 18:22] LABS: ARTERIAL BLOOD GAS ALLEN TEST NORMAL; ARTERIAL BLOOD GAS ART SITE LEFT RADIAL; ARTERIAL BLOOD GAS DELIVERY VENT; ARTERIAL BLOOD GAS VENT MODE AC; ARTERIAL DRAW? YES
[2016-10-28 18:28] LABS: ALBUMIN SERUM 2.6 g/dL (3.5-5.0); BILIRUBIN,TOTAL 1.3 mg/dL (0.2-2.0); BUN/CREATININE RATIO 19.5; GLOM FILT RATE Estimated 25.4 mL/min (>60); PROTEIN TOTAL SERUM 4.7 g/dL (6.0-8.3)
[2016-10-28 21:59] LABS: %MB 7.4 % (0.0-4.0)
[2016-10-29 04:13] LABS: %MB 5.7 % (0.0-4.0); MB 13.6 ng/ml
[2016-10-29 04:16] LABS: ARTERIAL BLD GAS O2 SATURATION 98.6 % (90.0-100.0); ARTERIAL BLOOD GAS CARBOXY HB 0.1 %sat (0.0-9.0); ARTERIAL BLOOD GAS HCO3 21.2 mmol/L; ARTERIAL BLOOD GAS MET HB 0.7 %sat (0.0-2.0); ARTERIAL BLOOD GAS PCO2 39.6 mmHg (35.0-45.0); ARTERIAL BLOOD GAS pH 7.337 (7.350-7.450)
[2016-10-29 04:24] LABS: ARTERIAL BLOOD GAS ART SITE RIGHT BRACHIAL; ARTERIAL BLOOD GAS DELIVERY VENT; ARTERIAL BLOOD GAS VENT MODE AC; ARTERIAL DRAW? YES
[2016-10-29 06:11] LABS: BASOPHIL% 0.1 % (0-2.5); HEMOGLOBIN 8.4 gm/dL (12.0-16.0); LYMPHOCYTE# 1.3 X10e3 (1.0-3.5); LYMPHOCYTE% 4.2 % (17.0-45.0); MEAN CORPUSCULAR HEMOGLOBIN 26.1 PG (28-34); MEAN CORPUSCULAR HGB CONC 30.9 g/dL (30-36); MEAN PLATELET VOLUME 8.2 FL (6.5-11.5); MONOCYTE# 1.9 X10e3 (0-1.0); MONOCYTE% 6.1 % (3.0-12.0); NEUTROPHIL# 27.1 X10e3 (1.5-7.1); NEUTROPHIL% 89.6 % (40-75); PLATELET COUNT 115 X10e3 (140-420); RED CELL DISTRIBUTION WIDTH 17.2 % (11.0-15.5)
[2016-10-29 06:18] LABS: MEAN CELL VOLUME 84.6 FL (83-96); WHITE BLOOD COUNT 30.2 X10e3 (4.0-10.5)
[2016-10-29 06:21] LABS: DIFF IND NO
[2016-10-29 06:52] LABS: INR 1.1; PROTHROMBIN TIME (PATIENT) 11.9 SECONDS (9.6-11.5)
[2016-10-29 07:24] LABS: ALBUMIN SERUM 2.3 g/dL (3.5-5.0); BILIRUBIN,TOTAL 0.7 mg/dL (0.2-2.0); BUN/CREATININE RATIO 18.18; CALCIUM SERUM 7.8 mg/dL (8.4-10.2); CREATININE SERUM 2.2 mg/dL (0.6-1.4); GLOM FILT RATE Estimated 22.7 mL/min (>60); MAGNESIUM 1.7 mg/dL (1.6-3.0); PHOSPHOROUS 2.8 mg/dL (2.5-4.6); POTASSIUM 4.3 mmol/L (3.5-5.1); PROTEIN TOTAL SERUM 4.2 g/dL (6.0-8.3)
[2016-10-30 04:30] LABS: ARTERIAL BLD GAS O2 SATURATION 98.6 % (90.0-100.0); ARTERIAL BLOOD GAS CARBOXY HB 0.1 %sat (0.0-9.0); ARTERIAL BLOOD GAS HCO3 21.9 mmol/L; ARTERIAL BLOOD GAS MET HB 1.1 %sat (0.0-2.0); ARTERIAL BLOOD GAS PCO2 32.7 mmHg (35.0-45.0); ARTERIAL BLOOD GAS pH 7.433 (7.350-7.450)
[2016-10-30 05:01] LABS: ARTERIAL BLOOD GAS ALLEN TEST NORMAL; ARTERIAL BLOOD GAS ART SITE LEFT RADIAL; ARTERIAL BLOOD GAS DELIVERY VENT; ARTERIAL BLOOD GAS VENT MODE AC; ARTERIAL DRAW? YES
[2016-10-30 05:35] LABS: BASOPHIL% 0.1 % (0-2.5); HEMATOCRIT 21.9 % (35.0-45.0); LYMPHOCYTE# 0.8 X10e3 (1.0-3.5); LYMPHOCYTE% 5.7 % (17.0-45.0); MEAN CELL VOLUME 83.4 FL (83-96); MEAN CORPUSCULAR HEMOGLOBIN 26.1 PG (28-34); MEAN CORPUSCULAR HGB CONC 31.3 g/dL (30-36); MONOCYTE# 0.9 X10e3 (0-1.0); NEUTROPHIL# 12.6 X10e3 (1.5-7.1); NEUTROPHIL% 88.2 % (40-75); RED BLOOD COUNT 2.63 X10e (3.90-5.30); RED CELL DISTRIBUTION WIDTH 17.6 % (11.0-15.5)
[2016-10-30 05:37] LABS: WHITE BLOOD COUNT 14.3 X10e3 (4.0-10.5)
[2016-10-30 05:38] LABS: DIFF IND NO; HEMOGLOBIN 6.9 gm/dL (12.0-16.0); PLATELET COUNT 79 X10e3 (140-420)
[2016-10-30 06:46] LABS: BILIRUBIN,TOTAL 0.6 mg/dL (0.2-2.0); BUN/CREATININE RATIO 20.45; CREATININE SERUM 2.2 mg/dL (0.6-1.4); GLOM FILT RATE Estimated 22.7 mL/min (>60); POTASSIUM 3.8 mmol/L (3.5-5.1); PROTEIN TOTAL SERUM 3.8 g/dL (6.0-8.3)
== END 2016-10-30 18:52 | disposition expired | DRG 871 ==
LOC: CED 11:36 → CEDOF 15:01 → CICCU3 17:13
PROVIDERS: Family Medicine; Internal Medicine; Internal Medicine Pulmonary Disease; Student in an Organized Health Care Education/Training Program
PROC: 0W9930Z Drainage of Right Pleural Cavity with Drainage Device, Percutaneous Approach (ICD-10-PCS; principal; 2016-10-28)
PROC: 5A1945Z Respiratory Ventilation, 24-96 Consecutive Hours (ICD-10-PCS; 2016-10-28)
PROC: B32TYZZ Computerized Tomography (CT Scan) of Left Pulmonary Artery using Other Contrast (ICD-10-PCS; 2016-10-28)
PROC: B32SYZZ Computerized Tomography (CT Scan) of Right Pulmonary Artery using Other Contrast (ICD-10-PCS; 2016-10-28)
PROC: 0BH17EZ Insertion of Endotracheal Airway into Trachea, Via Natural or Artificial Opening (ICD-10-PCS; 2016-10-28)
DX: A41.9 Sepsis, unspecified organism (principal); R65.21 Severe sepsis with septic shock; J96.21 Acute and chronic respiratory failure with hypoxia; I46.9 Cardiac arrest, cause unspecified; K72.00 Acute and subacute hepatic failure without coma; J69.0 Pneumonitis due to inhalation of food and vomit; C78.7 Secondary malignant neoplasm of liver and intrahepatic bile duct; N17.9 Acute kidney failure, unspecified; S22.43XA Multiple fractures of ribs, bilateral, initial encounter for closed fracture; D69.6 Thrombocytopenia, unspecified; S27.0XXA Traumatic pneumothorax, initial encounter; C79.31 Secondary malignant neoplasm of brain; C77.9 Secondary and unspecified malignant neoplasm of lymph node, unspecified; J44.1 Chronic obstructive pulmonary disease with (acute) exacerbation; Z88.8 Allergy status to other drugs, medicaments and biological substances; Z85.3 Personal history of malignant neoplasm of breast; I10 Essential (primary) hypertension; E78.5 Hyperlipidemia, unspecified; G89.29 Other chronic pain; H40.9 Unspecified glaucoma; M10.9 Gout, unspecified; Z87.891 Personal history of nicotine dependence; R73.9 Hyperglycemia, unspecified; E87.5 Hyperkalemia; Z90.49 Acquired absence of other specified parts of digestive tract; Z90.710 Acquired absence of both cervix and uterus; K21.9 Gastro-esophageal reflux disease without esophagitis; K22.4 Dyskinesia of esophagus
CPT/HCPCS: 36556; 36600; 51702; 70450; 71010; 71275; 74000; 80048; 80053; 80076; 80200; 80202; 81003; 82308; 82550; 82553; 82565; 82803; 82947; 83036; 83605; 83735; 84100; 84484; 85014; 85018; 85025; 85610; 85730; 86850; 86900; 86901; 87040; 93005; 94002; 94003; 94640; 94761; 96361; 96365; 96366; 96368; 96375; 99291; C9113; C9254; J1815; J1953; J2060; J2250; J2270; J2543; J2930; J3010; J3260; J3370; J3475; Q9967